=== PATIENT | male | born 1995 | race African-American/Black ===

== ENCOUNTER 2019-09-14 20:11 | Emergency (ER) | payer MEDICAID ==
[~2019-09-14] VITALS: Ht 165.1 cm; Wt 68.0 kg
[2019-09-14 20:17] VITALS: BP 137/83
== END 2019-09-14 23:29 | disposition home or self-care (01) ==
LOC: ER 20:11
DX: S63.654A Sprain of metacarpophalangeal joint of right ring finger, initial encounter (principal); S63.656A Sprain of metacarpophalangeal joint of right little finger, initial encounter; S16.1XXA Strain of muscle, fascia and tendon at neck level, initial encounter; S80.02XA Contusion of left knee, initial encounter; F14.10 Cocaine abuse, uncomplicated; V49.88XA Car occupant (driver) (passenger) injured in other specified transport accidents, initial encounter; Y93.89 Activity, other specified; Y92.89 Other specified places as the place of occurrence of the external cause; Y99.8 Other external cause status
CPT/HCPCS: 73130; 73562; 99285